=== PATIENT | male | born 1975 | race Caucasian/White ===

== ENCOUNTER → 2022-02-17 | Day surgery (SDC) | payer MEDICARE, MEDICAID ==
[~2022-02-17] VITALS: Ht 172.7 cm; Wt 78.5 kg
[~2022-02-17] MED LIST: ATROPINE SULFATE 0.4MG/ML VIAL IV PRN; BACITRACIN 15GM TUBE TOP ONE; BUPIVACAINE HCL/PF 0.5% (5MG/ML) 10ML ONE; CEFAZOLIN SODIUM 1000MG/VIAL ONE; DEXAMETHASONE 4MG/ML 1ML VIAL ONE; FENTANYL CITRATE/PF 50MCG/ML 2ML VIAL IV PRN; FENTANYL CITRATE/PF 50MCG/ML 2ML VIAL ONE; HEPARIN 1000 UNITS/ML 10ML ONE; HEPARIN SODIUM 1,000 UNIT/1ML VIAL IV ONE; INSU100I24 SQ; LABE200T9 PO; LIDOCAINE HCL 1% 10 MG/ML 10ML VIAL ONE; LIDOCAINE HCL 2% JELLY 5ML ONE; MIDAZOLAM HCL 2 MG/2 ML VIAL ONE; ONDANSETRON HCL 4MG/2ML INJ ONE; POLYMYXIN B SULFATE 500000 UNITS/VIAL ONE; PROPOFOL 200MG/20ML VIAL IV ONE; SEVE800T8 PO; SITA25TA3 PO; SODIUM CHLORIDE 0.9% 500 ML IV ONE; THROMBIN (BOVINE) 5000 UNITS/VIAL TOP ONE
[2022-02-17 09:43] LABS: EOSINOPHILS % 3.8 % (0.0-5.0); HEMATOCRIT. 35.6 % (42.0-52.0); HEMOGLOBIN. 11.8 g/dL (14.0-18.0); MEAN CORPUSCULAR HEMOGLOBIN 29.5 pg (28.0-32.0); MEAN CORPUSCULAR VOLUME 89.3 fL (80.0-94.0); MEAN PLATELET VOLUME 9.4 fl (7.4-10.4); MONOCYTES % 8.2 % (2.0-8.0); PLATELET 169 x1000/uL (130-400); RED BLOOD CELL COUNT 3.99 mill/uL (4.7-6.1); RED CELL DISTRIBUTION WIDTH 15.1 % (11.6-14.6)
[2022-02-17 09:54] LABS: PARTIAL THROMBOPLASTIN TIME 29.2 sec (23.4-31.0); PROTHROMBIN TIME 10.9 sec (9.6-11.0)
== END | disposition home or self-care (01) ==
LOC: OR 09:09
PROVIDERS: ATTEND Surgery Vascular Surgery
DX: I12.0 Hypertensive chronic kidney disease with stage 5 chronic kidney disease or end stage renal disease (principal); N18.6 End stage renal disease; E11.9 Type 2 diabetes mellitus without complications; E78.00 Pure hypercholesterolemia, unspecified; Z79.84 Long term (current) use of oral hypoglycemic drugs; Z79.899 Other long term (current) drug therapy; Z98.890 Other specified postprocedural states; Z20.822 Contact with and (suspected) exposure to COVID-19
CPT/HCPCS: 36415; 36821; 80048; 85025; 85610; 85730; 87426; 93005; J0690; J1100; J1644; J2250; J2405; J2704; J3010; J3490; J7030

== ENCOUNTER 2024-02-26 04:06 | Inpatient (IN) | payer MEDICARE, MEDICAID ==
[~2024-02-26] VITALS: Ht 172.7 cm; Wt 79.8 kg
[2024-02-26] VITALS (11 sets, daily range): BP systolic 140–167; BP diastolic 77–90; PULSE 80–106; RESP 15–20; TEMP 36.114–36.72516; O2SAT 98–100
[~2024-02-26 04:06] MED LIST changes: -ATROPINE SULFATE 0.4MG/ML VIAL IV PRN; -BACITRACIN 15GM TUBE TOP ONE; -BUPIVACAINE HCL/PF 0.5% (5MG/ML) 10ML ONE; -CEFAZOLIN SODIUM 1000MG/VIAL ONE; -DEXAMETHASONE 4MG/ML 1ML VIAL ONE; -FENTANYL CITRATE/PF 50MCG/ML 2ML VIAL IV PRN; -FENTANYL CITRATE/PF 50MCG/ML 2ML VIAL ONE; -HEPARIN 1000 UNITS/ML 10ML ONE; -HEPARIN SODIUM 1,000 UNIT/1ML VIAL IV ONE; -LIDOCAINE HCL 1% 10 MG/ML 10ML VIAL ONE; -LIDOCAINE HCL 2% JELLY 5ML ONE; -MIDAZOLAM HCL 2 MG/2 ML VIAL ONE; -ONDANSETRON HCL 4MG/2ML INJ ONE; -POLYMYXIN B SULFATE 500000 UNITS/VIAL ONE; -PROPOFOL 200MG/20ML VIAL IV ONE; -SODIUM CHLORIDE 0.9% 500 ML IV ONE; -THROMBIN (BOVINE) 5000 UNITS/VIAL TOP ONE
[2024-02-26 04:34] LABS: BASOPHILS % 0.6 % (0.0-2.0); EOSINOPHILS % 2.9 % (0.0-5.0); HEMATOCRIT. 26.5 % (42.0-52.0); HEMOGLOBIN. 8.8 g/dL (14.0-18.0); LYMPHOCYTES % 8.5 % (20.0-50.0); MEAN CORPUSCULAR HEMOGLOBIN 30.7 pg (28.0-32.0); MEAN CORPUSCULAR HGB CONC 33.3 g/dL (31.0-37.0); MEAN CORPUSCULAR VOLUME 92.2 fL (80.0-94.0); MEAN PLATELET VOLUME 8.9 fl (7.4-10.4); MONOCYTES % 8.7 % (2.0-8.0); NEUTROPHILS % 79.3 % (40.0-76.0); PLATELET 235 x1000/uL (130-400); RED BLOOD CELL COUNT 2.88 mill/uL (4.7-6.1); RED CELL DISTRIBUTION WIDTH 15.1 % (11.6-14.6); WHITE BLOOD COUNT 12.8 x1000/uL (4.5-11.0)
[2024-02-26] MEDS: MORPHINE SULFATE 4 MG/ML INJ (FOR IV/IM USE) IV STA (04:35)
[2024-02-26] MEDS: ASPIRIN 81MG TABLET PO ONE (04:35)
[2024-02-26] MEDS: ONDANSETRON HCL 4MG/2ML INJ IV STA (04:35)
[2024-02-26 04:38] LABS: CHLORIDE 103 mEq/L (98-107); POTASSIUM 4.2 mEq/L (3.5-5.1); SODIUM 139 mEq/L (136-145)
[2024-02-26 04:39] LABS: CARBON DIOXIDE 24 mEq/L (21-32)
[2024-02-26 04:40] LABS: CALCIUM 9.1 mg/dL (8.7-10.4)
[2024-02-26 04:44] LABS: GLUCOSE 146 mg/dL (70-105)
[2024-02-26 04:45] LABS: UREA NITROGEN BLOOD 61 mg/dL (9-23)
[2024-02-26 04:46] LABS: INR 0.9; PARTIAL THROMBOPLASTIN TIME 30.2 sec (23.4-31.0); PROTHROMBIN TIME 10.3 sec (9.6-11.0)
[2024-02-26 04:47] LABS: TROPONIN I HIGH SENSITIVITY 30 ng/L (3.0-53)
[2024-02-26 06:49] LABS: TROPONIN I HIGH SENSITIVITY 35 ng/L (3.0-53)
[2024-02-26 09:22] LABS: HEPATITIS B SURFACE ANTIGEN NEGATIVE (Negative)
[2024-02-26 09:42] LABS: HEPATITIS A AB IGM NEGATIVE (Negative)
[2024-02-26 09:43] LABS: HEPATITIS B CORE AB IGM NEGATIVE (Negative)
[2024-02-26 09:44] LABS: HEPATITIS C AB NON REACTIVE (Neg) (Negative)
[2024-02-26] MEDS ORDERED: IPRATROPIUM/ALBUTEROL 0.5-3(2.5)MG/3ML NEB HHN PRN (10:30)
[2024-02-26] MEDS ORDERED: DOCUSATE SODIUM 100MG CAPSULE PO PRN (10:30)
[2024-02-26] MEDS ORDERED: MAGNESIUM/ALUMINUM HYDROXIDE/SIMETHICONE 30ML UDC PO PRN (10:30)
[2024-02-26] MEDS ORDERED: DEXTROSE 50% WATER 50ML SYRINGE IV PRN (10:30)
[2024-02-26] MEDS ORDERED: ACETAMINOPHEN 650MG/20.3ML UDC GT PRN (10:30)
[2024-02-26] MEDS ORDERED: GUAIFENESIN 200MG/10ML SUGAR FREE UDC PO PRN (10:30)
[2024-02-26] MEDS ORDERED: CLONIDINE 0.1MG TABLET PO PRN (10:30)
[2024-02-26] MEDS ORDERED: ACETAMINOPHEN 325MG TABLET PO PRN (10:30)
[2024-02-26] MEDS: NITROGLYCERIN 0.4MG TABLET SL SL NR (12:08)
[2024-02-26] MEDS: AMLODIPINE 5MG TABLET PO SCH (12:08)
[2024-02-26] MEDS: AZITHROMYCIN 500 MG TABLET PO SCH (12:08)
[2024-02-26] MEDS: BLOOD SUGAR DIAGNOSTIC STRIP TEST SCH (14:04)
[2024-02-26] MEDS: INSULIN LISPRO 100 UNITS/ML SUBCUT SCH ×2 (14:04→18:02)
[2024-02-26] MEDS: CEFTRIAXONE 1GM/50ML 50 ML IV SCH (15:11)
[2024-02-26 17:00] LABS: CREATINE KINASE MB FRACTION 1.2 ng/mL (0.5-3.6)
[2024-02-26] MEDS: METOPROLOL TARTRATE 25MG TABLET PO SCH (18:03)
[2024-02-26] MEDS ORDERED: LABETALOL HCL 300MG TABLET PO SCH (21:00)
[2024-02-26] MEDS: ATORVASTATIN CALCIUM 40MG TABLET PO SCH (21:26)
[2024-02-26 22:15] LABS: CREATINE KINASE MB FRACTION 0.9 ng/mL (0.5-3.6)
[2024-02-26] MEDS: ONDANSETRON HCL 4MG/2ML INJ IV PRN (23:01)
[2024-02-27] VITALS (12 sets, daily range): BP systolic 117–162; BP diastolic 71–91; PULSE 70–76; RESP 16–20; TEMP 36.16956–36.78072; O2SAT 96–100
[2024-02-27 02:05] LABS: CLARITY URINE CLEAR (CLEAR); COLOR URINE YELLOW (YELLOW); GLUCOSE URINE TRACE (NEGATIVE); KETONES URINE NEGATIVE (NEGATIVE); LEUKOCYTE ESTERASE URINE NEGATIVE (NEGATIVE); NITRITE URINE NEGATIVE (NEGATIVE); OCCULT BLOOD URINE NEGATIVE (NEGATIVE); PH URINE 8.5 (4.5-8.0); PROTEIN URINE 3+ (NEGATIVE); SPECIFIC GRAVITY URINE 1.013 (1.005-1.030); UROBILINOGEN URINE 0.2 E.U./dL (0.2-1.0)
[2024-02-27 03:46] LABS: BACTERIA URINE NONE SEEN; RBC URINE 0-2 /hpf (0-2); SQUAMOUS EPITHELIAL CELL URINE NONE SEEN /lpf (RARE/1+); WBC URINE 0-2 /hpf (0-2)
[2024-02-27 07:22] LABS: CHLORIDE 102 mEq/L (98-107); POTASSIUM 5.4 mEq/L (3.5-5.1); SODIUM 137 mEq/L (136-145)
[2024-02-27 07:23] LABS: CALCIUM 9.2 mg/dL (8.7-10.4); CARBON DIOXIDE 26 mEq/L (21-32)
[2024-02-27 07:28] LABS: GLUCOSE 79 mg/dL (70-105); TRIGLYCERIDE 105 mg/dL (0-150); UREA NITROGEN BLOOD 46 mg/dL (9-23)
[2024-02-27 07:29] LABS: LDL CHOLESTEROL 72 mg/dL (5-100)
[2024-02-27 07:30] LABS: CHOLESTEROL 128 mg/dL (<200); HDL CHOLESTEROL 35 mg/dL (>55); PHOSPHORUS 4.6 mg/dL (2.5-4.9)
[2024-02-27 07:32] LABS: THYROID STIMULATING HORMONE 2.34 uIU/mL (0.55-4.78)
[2024-02-27 07:33] LABS: BASOPHILS % 0.5 % (0.0-2.0); EOSINOPHILS % 2.8 % (0.0-5.0); HEMATOCRIT. 29.1 % (42.0-52.0); HEMOGLOBIN. 9.5 g/dL (14.0-18.0); LYMPHOCYTES % 11.8 % (20.0-50.0); MEAN CORPUSCULAR HEMOGLOBIN 30.6 pg (28.0-32.0); MEAN CORPUSCULAR HGB CONC 32.6 g/dL (31.0-37.0); MEAN PLATELET VOLUME 9.1 fl (7.4-10.4); MONOCYTES % 9.7 % (2.0-8.0); NEUTROPHILS % 75.2 % (40.0-76.0); PLATELET 222 x1000/uL (130-400); RED CELL DISTRIBUTION WIDTH 15.2 % (11.6-14.6); T4 FREE 0.95 ng/dL (0.89-1.76); WHITE BLOOD COUNT 9.4 x1000/uL (4.5-11.0)
[2024-02-27 07:38] LABS: CREATININE 7.5 mg/dL (0.6-1.3)
[2024-02-27] MEDS ORDERED: FUROSEMIDE 20MG TABLET PO SCH (09:00)
[2024-02-27] MEDS: ASPIRIN 81MG EC TABLET PO SCH (10:10)
[2024-02-27] MEDS: SEVELAMER CARBONATE 800 MG TABLET PO SCH (10:11)
[2024-02-27] MEDS: FOLIC ACID/VITAMIN B COMP W-C TABLET PO SCH (10:12)
[2024-02-27] MEDS: INSULIN GLARGINE 100 UNITS/ML SUBCUT SCH (10:17)
[2024-02-27] MEDS: EPOETIN ALFA-EPBX 4,000 UNIT/ML VIAL SUBCUT SCH (22:03)
[2024-02-28] VITALS: BP 138/77; PULSE 81; RESP 20; TEMP 37.61412; O2SAT 98
[2024-02-28 04:00] VITALS: BP 161/84; PULSE 74; RESP 20; TEMP 37.39188; O2SAT 96
[2024-02-28 07:39] LABS: CALCIUM 9.2 mg/dL (8.7-10.4); POTASSIUM 4.5 mEq/L (3.5-5.1)
[2024-02-28 07:51] LABS: CREATININE 6.6 mg/dL (0.6-1.3)
[2024-02-28 07:56] LABS: BASOPHILS % 0.9 % (0.0-2.0); EOSINOPHILS % 3.8 % (0.0-5.0); HEMATOCRIT. 28.7 % (42.0-52.0); HEMOGLOBIN. 9.5 g/dL (14.0-18.0); LYMPHOCYTES % 13.5 % (20.0-50.0); MEAN CORPUSCULAR HEMOGLOBIN 30.6 pg (28.0-32.0); MEAN CORPUSCULAR HGB CONC 32.9 g/dL (31.0-37.0); MEAN PLATELET VOLUME 9.8 fl (7.4-10.4); MONOCYTES % 9.5 % (2.0-8.0); NEUTROPHILS % 72.3 % (40.0-76.0); PLATELET 231 x1000/uL (130-400); RED BLOOD CELL COUNT 3.09 mill/uL (4.7-6.1); RED CELL DISTRIBUTION WIDTH 14.7 % (11.6-14.6); WHITE BLOOD COUNT 9.2 x1000/uL (4.5-11.0)
[2024-02-28 08:00] VITALS: BP 137/83; PULSE 70; RESP 18; TEMP 36.28068; O2SAT 99
[2024-02-28] MEDS: AMLODIPINE 10MG TABLET PO SCH (08:48)
[2024-02-28] MEDS ORDERED: FURO20TA4 PO (08:56)
[2024-02-28] MEDS ORDERED: AMLO10TA80 (08:56)
[2024-02-28] MEDS ORDERED: ATOR40TA70 PO (08:56)
[2024-02-28 12:00] VITALS: BP 143/81; PULSE 78; RESP 18; TEMP 36.33624; O2SAT 99
[2024-02-28 12:10] VITALS: BP 143/81; PULSE 78; TEMP 97.4; O2SAT 99
== END 2024-02-28 12:30 | disposition home or self-care (01) | DRG 311 ==
LOC: ER 04:06 → 5WST 05:49 → EDBEDREQ 05:55 → EDBEDREQTM 05:55 → 7WST 17:28
PROVIDERS: ADMIT Hospitalist; ATTEND Hospitalist
PROC: 5A1D70Z Performance of Urinary Filtration, Intermittent, Less than 6 Hours Per Day (ICD-10-PCS; principal; 2024-02-26)
PROC: 5A1D70Z Performance of Urinary Filtration, Intermittent, Less than 6 Hours Per Day (ICD-10-PCS; 2024-02-27)
DX: I20.89 Other forms of angina pectoris (principal); N18.6 End stage renal disease; I12.0 Hypertensive chronic kidney disease with stage 5 chronic kidney disease or end stage renal disease; R65.10 Systemic inflammatory response syndrome (SIRS) of non-infectious origin without acute organ dysfunction; E87.5 Hyperkalemia; E78.5 Hyperlipidemia, unspecified; D64.9 Anemia, unspecified; E11.22 Type 2 diabetes mellitus with diabetic chronic kidney disease; E11.319 Type 2 diabetes mellitus with unspecified diabetic retinopathy without macular edema; E21.3 Hyperparathyroidism, unspecified; Z79.84 Long term (current) use of oral hypoglycemic drugs; Z79.899 Other long term (current) drug therapy; Z98.61 Coronary angioplasty status; Z99.2 Dependence on renal dialysis
CPT/HCPCS: 36415; 71045; 80048; 80061; 81003; 82550; 82553; 82962; 83036; 83605; 83735; 83880; 84100; 84145; 84439; 84443; 84484; 85025; 85379; 85651; 86705; 86709; 86850; 86900; 87340; 87804; 90935; 93005; 93970; 99291; J0696; J0885; J1815; J2270; J2405